=== PATIENT | male | born 1945 | race Caucasian/White ===

== ENCOUNTER → 2022-05-07 | Day surgery (SDC) | payer OTHER ==
[~2022-05-07] VITALS: Ht 180.3 cm; Wt 90.7 kg
[~2022-05-07] MED LIST: ASPIRIN EC81 MG PO; CARDURA1 MG PO; FLOVENT HF120 PUFFS/ INH; HCTZ12.5 MG PO; LIPITOR 10MG TA10 MG PO; PROAIR HFA8.5 GM INH; PROSCAR5 MG PO; PROZAC20 MG PO; SPIRIVA RESPIMAT4 G1 INH
== END | disposition home or self-care (01) ==
LOC: FAS 06:50
DX: L72.0 Epidermal cyst (principal); Z79.82 Long term (current) use of aspirin